=== PATIENT | male | born 1950 | race Caucasian/White ===

== ENCOUNTER → 2022-02-20 | Outpatient (CLI) | payer MEDICARE, OTHER | LOC: KOH-I 11:03 | DX: M79.671 Pain in right foot (principal); S92.331D Displaced fracture of third metatarsal bone, right foot, subsequent encounter for fracture with routine healing | CPT/HCPCS: 73630 ==

== ENCOUNTER → 2022-03-08 | Outpatient (CLI) | payer MEDICARE, OTHER | LOC: NM 03-01 07:00 | DX: M86.9 Osteomyelitis, unspecified (principal); R22.41 Localized swelling, mass and lump, right lower limb | CPT/HCPCS: 78800; A9569 ==